=== PATIENT | male | born 1980 | race American Indian/Alaskan Native ===

== ENCOUNTER 2018-10-06 05:36 | Emergency (ER) | payer SELFPAY ==
[2018-10-06 05:49] VITALS: BP 137/87
== END 2018-10-06 06:06 | disposition left against medical advice (07) ==
LOC: ED 05:36
DX: R20.0 Anesthesia of skin (principal); Z53.21 Procedure and treatment not carried out due to patient leaving prior to being seen by health care provider
CPT/HCPCS: 82962